=== PATIENT | female | born 1955 | race Caucasian/White ===

== ENCOUNTER → 2018-09-13 | Outpatient (CLI) | payer MEDICARE, BC ==
--- NOTE | 2018-09-13 15:18 | P.HPBAR ---
Bariatric H&P - History & Physicial H&P Date: 09/13/18 History & Physicial: Visit/CC: Patient initial contact: Initial weight: Initial weight in pounds: Height: Initial BMI: Last weight: Current weight: Current weight in pounds: Current BMI: [place] body weight (based on NIH guidelines): Excess body weight loss: The patient is a 63 year-old F who presents for Bariatric Assessment. HPI: She is looking into the gastric bypass. No prior surgeries to the stomach. She has severe GERD. She reports her mom getting heavier and her daughter. Highest weight is 296 pounds. She has done HCG diet and she lost much weight to 150 pounds with 80 pound weight loss. She still has her gallbladder. She reports liking her carbohydrates. She has troubles with acid reflux with carbohydrates. She does not feel full at all. She reports after her tubes tied. Her usual weight was 140 pounds in the past. She is a past smoker and social. She was 36 to 37 years old. She had a cystectomy in her 20s. ABDOMEN: No abdominal pain. ASSESSMENT: 1. Morbid obesity PLAN: 1. She is looking into the gastric bypass 2. She has completed medically supervised weight loss. 3. Recommend EGD Past Medical History Past Medical History: Osteoarthritis (OA), Sleep Apnea/CPAP/BIPAP Additional Past Medical History / Comment(s): chronic low back pain worsens with walking/movement in increments greater than 20 minutes, History of Any Multi-Drug Resistant Organisms: None Reported Past Surgical History: Tonsillectomy Additional Past Surgical History / Comment(s): oopherectomy (Left?) Past Anesthesia/Blood Transfusion Reactions: No Reported Reaction Past Psychological History: No Psychological Hx Reported Smoking Status: Current every day smoker Past Alcohol Use History: None Reported Additional Past Alcohol Use History / Comment(s): 1 pack per day x 6 years Past Drug Use History: None Reported - Past Family History Father Family Medical History: No Reported History Mother Family Medical History: No Reported History Bariatric Checklist Checklist: Plan: Checklist: EGD: 1. Hiatal hernia: 2. H. Pylori: HgbA1c: Vitamin D: Smoking: Current every day smoker Primary care physician referral: Psychiatry clearance: Cardiology clearance: Sleep study: Diet journal: VTE risk score: VTE risk level: Rehab needs at discharge:
[2018-09-13 16:13] VITALS: BP 149/84; PULSE 98; TEMP 97.5; BMI 43.3
[2018-09-13 17:28] LABS: HCT 46.8 % (34.0-46.0); MCHC 32.2 g/dL (31.0-37.0); MCV 90.1 fL (80.0-100.0); Mean Platelet Volume 7.5; Platelet Count 304 k/uL (150-450); RBC 5.19 m/uL (3.80-5.40); RDW 13.5 % (11.5-15.5); WBC 9.2 k/uL (3.8-10.6)
[2018-09-13 17:31] LABS: Partial Thromboplastin Time 23.2 sec (22.0-30.0); Prothrombin Time 10.5 sec (9.0-12.0)
[2018-09-14 00:31] LABS: Albumin 4.4 g/dL (3.80-4.90); Albumin/Globulin Ratio 1.76 (1.60-3.17); Anion Gap 13.6 mmol/L (4.00-12.00); Calcium 9.4 mg/dL (8.7-10.3); Carbon Dioxide 19.4 mmol/L (21.6-31.8); Globulin 2.5 g/dL (1.6-3.3); LDL Cholesterol,Calculated 115.4 mg/dL (0.0-131.0); Phosphorus 4.6 mg/dL (2.4-5.1); Potassium 4.6 mmol/L (3.5-5.5); Total Bilirubin 0.5 mg/dL (0.3-1.2); Total Protein 6.9 g/dL (6.2-8.2); VLDL Calculation 21.6 mg/dL (5.00-40.00)
[2018-09-14 00:48] LABS: Iron Saturation 26.3 (12.00-45.00)
[2018-09-14 00:56] LABS: Parathyroid Hormone Intact 63.9 pg/mL (14.0-72.0)
[2018-09-14 00:57] LABS: Folate, Serum 7.3 ng/mL; Vitamin D 25 Hydroxy 17.7 ng/mL (30.0-100.0)
[2018-09-14 02:36] LABS: Hemoglobin A1C 5.6 % (4.0-6.0)
[2018-09-14 13:58] LABS: Zinc, Serum 92 ug/dL (60-130)
[2018-09-15 06:23] LABS: Vitamin A 49 ug/dL (38-106)
[2018-09-15 15:21] LABS: Vit B1(Thiamine) 71 ug/L (38-122)
== END ==
LOC: BARWHC3 13:54
PROVIDERS: ATTEND Surgery Plastic and Reconstructive Surgery
DX: E66.01 Morbid (severe) obesity due to excess calories (principal); F17.200 Nicotine dependence, unspecified, uncomplicated; E21.1 Secondary hyperparathyroidism, not elsewhere classified; E89.1 Postprocedural hypoinsulinemia; D50.9 Iron deficiency anemia, unspecified; K90.9 Intestinal malabsorption, unspecified; E55.9 Vitamin D deficiency, unspecified; K74.1 Hepatic sclerosis; N19 Unspecified kidney failure; K50.90 Crohn's disease, unspecified, without complications; Z68.41 Body mass index [BMI] 40.0-44.9, adult
CPT/HCPCS: 84255; 84134; 84425; 80061; 80053; 82607; 82728; 82525; 82746; 83540; 83550; 83735; 84100; 84443; 84590; 84630; 85027; 85610; 85730; 82306; 83970; 83036; 93005; G0463; 99201

== ENCOUNTER → 2018-10-02 | Outpatient (CLI) | payer MEDICARE, BC ==
[2018-10-02 14:49] VITALS: BMI 44.9
== END | disposition home or self-care (01) ==
LOC: BARWHC3 08:38
PROVIDERS: ATTEND Surgery Plastic and Reconstructive Surgery
DX: E66.01 Morbid (severe) obesity due to excess calories (principal); Z68.41 Body mass index [BMI] 40.0-44.9, adult
CPT/HCPCS: 97804

== ENCOUNTER 2018-10-23 06:22 | Day surgery (SDC) | payer MEDICARE, BC ==
--- NOTE | 2018-10-22 18:20 | P.GSHP ---
History of Present Illness H&P Date: 10/23/18 CHIEF COMPLAINT: GERD HISTORY OF PRESENT ILLNESS: The patient is a 63-year-old female who presents reports gastroesophageal reflux disease. Upper endoscopy was offered for further evaluation and management. PAST MEDICAL HISTORY: Please see list. PAST SURGICAL HISTORY: Please see list. MEDICATIONS: Please see list. ALLERGIES: Please see list. SOCIAL HISTORY: No illicit drug use FAMILY HISTORY: No reports of Crohn disease or ulcerative colitis. REVIEW OF ORGAN SYSTEMS: CONSTITUTIONAL: No reports of fevers or chills. GI: Denies any blood in stools or constipation. PHYSICAL EXAM: VITAL SIGNS: Stable GENERAL: Well-developed and pleasant in no acute distress. HEENT: No scleral icterus. Extraocular movements grossly intact. Moist buccal mucosa. NECK: Supple without lymphadenopathy. CHEST: Unlabored respirations. Equal bilateral excursions. CARDIOVASCULAR: Regular rate and rhythm. Distal 2+ pulses. ABDOMEN: Soft, nondistended. MUSCULOSKELETAL: No clubbing, cyanosis, or edema. ASSESSMENT: 1. Gastroesophageal reflux disease PLAN: 1. Recommend proceeding with an upper endoscopy Past Medical History Past Medical History: Osteoarthritis (OA), Sleep Apnea/CPAP/BIPAP Additional Past Medical History / Comment(s): chronic low back pain worsens with walking/movement in increments greater than 20 minutes, History of Any Multi-Drug Resistant Organisms: None Reported Past Surgical History: Tonsillectomy Additional Past Surgical History / Comment(s): oopherectomy (Left?) Past Anesthesia/Blood Transfusion Reactions: No Reported Reaction Past Psychological History: No Psychological Hx Reported Smoking Status: Current every day smoker Past Alcohol Use History: None Reported Additional Past Alcohol Use History / Comment(s): 1 pack per day x 6 years Past Drug Use History: None Reported - Past Family History Father Family Medical History: No Reported History Mother Family Medical History: No Reported History Medications and Allergies Home Medications Medication Instructions Recorded Confirmed Type No Known Home Medications 10/02/18 10/02/18 History Allergies Allergy/AdvReac Type Severity Reaction Status Date / Time No Known Allergies Allergy Verified 10/02/18 11:16
[2018-10-23 06:51] VITALS: RESP 16; TEMP 97.7
[2018-10-23] MEDS ORDERED: LACTATED RINGERS 1,000 ML IV ONE (06:51)
[2018-10-23] MEDS ORDERED: PROPOFOL 10 MG/ML 20 ML VIAL IV ONE (07:04)
[2018-10-23] MEDS ORDERED: LIDOCAINE 1% INJ 10MG/ML (20 ML MDV) ONE (07:04)
[2018-10-23] MEDS ORDERED: MIDAZOLAM 2 MG/2 ML VIAL ONE (07:04)
[2018-10-23] MEDS ORDERED: KETAMINE 10 MG/ML 20 ML VIAL ONE (07:04)
--- NOTE | 2018-10-23 07:23 | P.PCN ---
Date of Procedure: 10/23/18 Description of Procedure: PREOPERATIVE DIAGNOSIS: Gastroesophageal reflux disease. Morbid obesity. POSTOPERATIVE DIAGNOSIS: Morbid obesity. Gastritis acute recent bleeding Duodenitis with superficial duodenal ulcer Erosive esophagitis Gastroesophageal reflux disease. OPERATION: Esophagogastroduodenoscopy with biopsies along antrum and duodenum SURGEON: Lynette Tate MD ANESTHESIA: MAC. INDICATIONS: The patient is a 63-year-old female who presents with a history of reflux disease. Benefits and risks of the procedure were described. Informed consent was obtained. DESCRIPTION: The patient was brought into the endoscopy suite and laid in the left lateral decubitus position. An Olympus gastroscope was passed along the posterior oropharynx down to the distal esophagus where the squamocolumnar junction was .investigated The stomach was entered and no bile reflux was found. Additional findings are listed below. Biopsies with cold forceps were obtained of the antrum. The first through third portion of the duodenum was examined and remarkable for duodenitis and superficial duodenal ulcer. Retroflexion of the scope confirmed Hill grade 3 lower esophageal valve. The squamocolumnar junction demonstrated LA grade B erosive esophagitis. The stomach was desufflated. The patient tolerated the procedure well. FINDINGS: No significant large hiatal hernial Hill grade 3 lower esophageal valve. LA grade B erosive esophagitis. Active duodenitis. Chronic gastritis with recent bleed RECOMMENDATIONS: Upper endoscopy as needed Start proton pump inhibitor Plan - Discharge Summary New Discharge Prescriptions: New Omeprazole 40 mg PO DAILY #30 capsule. Discharge Medication List Omeprazole 40 mg PO DAILY #30 capsule. 10/23/18 [Rx] Follow up Appointment(s)/Referral(s): Lynette Tate MD [STAFF PHYSICIAN] - 11/22/18 Patient Instructions/Handouts: Duodenitis (GEN), Gastritis (DC), Gastroesophageal Reflux Disease (DC), Diet for Stomach Ulcers and Gastritis (ED) Activity/Diet/Wound Care/Special Instructions: Your medication was sent to you local pharmacy Discharge Disposition: HOME SELF-CARE
[2018-10-23] MEDS ORDERED: LACTATED RINGERS 1,000 ML IV SCH (07:25)
[2018-10-23 08:00] VITALS: BP 139/73; PULSE 76
== END 2018-10-23 08:19 | disposition home or self-care (01) ==
LOC: ORWHC2ENDO 06:22
PROVIDERS: ATTEND Surgery Plastic and Reconstructive Surgery
DX: K21.0 Gastro-esophageal reflux disease with esophagitis (principal); E66.01 Morbid (severe) obesity due to excess calories; K22.10 Ulcer of esophagus without bleeding; K29.00 Acute gastritis without bleeding; K29.50 Unspecified chronic gastritis without bleeding; K29.80 Duodenitis without bleeding; F17.200 Nicotine dependence, unspecified, uncomplicated; Z68.41 Body mass index [BMI] 40.0-44.9, adult
CPT/HCPCS: 88305; 43239; J2250; J2001; J2704

== ENCOUNTER → 2018-11-29 | Outpatient (CLI) | payer MEDICARE, BC ==
[2018-11-29 16:33] VITALS: BP 142/63; PULSE 104; TEMP 98.4; BMI 44.0
--- NOTE | 2018-11-29 17:08 | P.PN ---
Subjective Progress Note Date: 11/29/18 DATE OF SERVICE: 11/29/2018 CHIEF COMPLAINT: Morbid obesity HISTORY OF PRESENT ILLNESS: Madonna Pickering is a 63-year-old female who comes with lifelong morbid obesity. She is looking into the gastric bypass. As a result of her obesity, she has developed obstructive sleep apnea, hypertension, and osteoarthritis of her knees and hips. She has completed an upper endoscopy. No reports of current abdominal pain. At height of 5 feet 6.5 inches, her ideal body weight is 154 pounds. She comes in 276 pounds from 272 pounds, 2 months ago. She has gained 4 pounds. Her highest weight was 296 pounds. Her body mass index highest was 47.2 to her current 44.0. She is 122 pounds overweight. PAST MEDICAL HISTORY: 1. Morbid obesity due to excess calories 2. Body mass index of 47.2, initial 3. Osteoarthritis of the knees. 4. Osteoarthritis of the lower back. 5. Hypertensive heart disease. 6. Gastroesophageal reflux disease 7. Obstructive sleep apnea 8. Osteoarthritis of the hips PAST SURGICAL HISTORY: 1. Tubal ligation 2. Ovarian cystectomy 3. EGD HOME MEDICATIONS: None. ALLERGIES: None. SOCIAL HISTORY: Past tobacco use. FAMILY HISTORY: No family history of ulcerative colitis disease or Crohn's disease. Family history of morbid obesity. No lupus in the family. No reports of stomach or esophageal cancer. REVIEW OF ORGAN SYSTEMS: CONSTITUTIONAL: At height of 5 feet 6.5 inches, her ideal body weight is 154 pounds. Her highest weight was 296 pounds. Her body mass index highest was 47.2. HEENT: Denies any active troubles with vision or hearing. No troubles with swallowing. ENDOCRINE: No diabetes. No hypothyroidism. CARDIOVASCULAR: No reports of palpitations or heart attacks or chest pain. RESPIRATORY: Has daytime somnolence. No asthma. GASTROINTESTINAL: Denies any bright red blood per rectum. No diarrhea. No constipation. MUSCULOSKELETAL: Has lower back pain and joint pain. Has osteoarthritis of the knees. NEURO: No headaches. No seizure disorders. PSYCH: No depression. No suicidal ideation. RHEUMATOLOGIC: No lupus. No rheumatoid arthritis. HEMATOLOGIC: Denies any abnormal bleeding or bruising. No personal history of DVTs. On anticoagulant. SKIN: No rash. No skin cancer. PHYSICAL EXAM: VITAL SIGNS: Height 5 foot 6.5 inches, weight 276 pounds. BMI 44.0 Vital Signs Temp 98.4 F 11/29/18 16:29 Pulse 104 H 11/29/18 16:29 Resp BP 142/63 11/29/18 16:29 Pulse Ox GENERAL: Well-developed in no acute distress. HEENT: No scleral icterus. Extraocular movements grossly intact. Hears conversational speech. No nasal drainage. NECK: Supple without lymphadenopathy. CHEST: Nonlabored respirations with equal bilateral excursions. CARDIOVASCULAR: Tachycardia. Distal 2+ pulses. ABDOMEN: Obese, soft, nontender, nondistended. MUSCULOSKELETAL: No clubbing, cyanosis. Gross strength 5/5 distal lower extremities. NEURO: No focal or lateralizing signs. Cranial nerves 2 through 12 grossly within normal limits. PSYCH: Appropriate affect. Alert and oriented to person, place and time. SKIN: Good skin turgor. Well perfused. Final Pathologic Diagnosis A. DUODENDUM, BIOPSY: Active duodenitis with villous blunting and focal ulceration showing adherent eschar most consistent with peptic disease. B. GASTRIC ANTRUM, BIOPSY: Chronic gastritis. Helicobacter organisms are not identified on routine H+E stained sections. EGD FINDINGS: No significant large hiatal hernial Hill grade 3 lower esophageal valve. LA grade B erosive esophagitis. Active duodenitis. Chronic gastritis with recent bleed EKG: Incomplete right bundle branch block LABS: Reviewed from outside facility ASSESSMENT: 1. Morbid obesity due to excess calories 2. Body mass index of 47.2, initial 3. Osteoarthritis of the knees. 4. Osteoarthritis of the lower back. 5. Hypertensive heart disease. 6. Gastroesophageal reflux disease 7. Obstructive sleep apnea 8. Osteoarthritis of the hips 9. Chronic gastritis with ulcers 10. Elevated LFTs PLAN: 1. Her EKG is abnormal and she is pending to see the powerhouse mechanic supervisor. Will need cardiac clearance. 2. Recommend US gallbaldder for gallstones and elevated LFTs 3. Consent reviewed for gastric bypass where she is high risk. 4. Bariatric options between a sleeve, band and a Tam-en-Y gastric bypass were reviewed in detail. The patient elected for a gastric bypass. Robotic assisted approach described. 5. The [place] [facility] Data was also reviewed with benefits and risks as described. 6. An 8 page second-generation bariatric consent form was reviewed in detail including potential of bleeding, infection, leaks, adequate weight loss, nutritional deficiencies which the patient demonstrated understanding of the risks. 7. All questions and concerns were addressed with the patient. 8. Surgery is deferred once medical, cardiac, psych clearances are obtained. 9. Will need labs performed at [facility] Objective - Vital Signs Vital signs: Vital Signs Temp 98.4 F 11/29/18 16:29 Pulse 104 H 11/29/18 16:29 Resp BP 142/63 11/29/18 16:29 Pulse Ox Intake & Output 11/28/18 11/29/18 11/29/18 18:59 06:59 18:59 Weight 125.645 kg
== END | disposition home or self-care (01) ==
LOC: BARWHC3 15:20
PROVIDERS: ATTEND Surgery Plastic and Reconstructive Surgery
DX: E66.01 Morbid (severe) obesity due to excess calories (principal); M17.0 Bilateral primary osteoarthritis of knee; M19.90 Unspecified osteoarthritis, unspecified site; I11.9 Hypertensive heart disease without heart failure; K21.9 Gastro-esophageal reflux disease without esophagitis; G47.33 Obstructive sleep apnea (adult) (pediatric); M16.0 Bilateral primary osteoarthritis of hip; K29.50 Unspecified chronic gastritis without bleeding; K25.7 Chronic gastric ulcer without hemorrhage or perforation; R79.89 Other specified abnormal findings of blood chemistry; Z68.41 Body mass index [BMI] 40.0-44.9, adult; Z87.891 Personal history of nicotine dependence; Z98.51 Tubal ligation status
CPT/HCPCS: 99211

== ENCOUNTER → 2018-12-19 | Outpatient (CLI) | payer MEDICARE, BC ==
--- NOTE | 2018-12-19 08:48 | US ---
EXAMINATION TYPE: US gallbladder DATE OF EXAM: 12/19/2018 COMPARISON: NONE CLINICAL HISTORY: R10.11 RUQ Pain. Patient having bariatric surgery and doctor wants to remove GB, jamie maria wanted US to confirm GB issue, states no symptoms EXAM MEASUREMENTS: Liver Length: 15.8 cm Gallbladder Wall: 0.2 cm CBD: 0.5 cm Right Kidney: 10.8 cm Pancreas: wnl Liver: intercostal only due to habitus and bowel gas. There is increased echogenicity of the hepatic parenchyma with diminished visualization of the portal triads most commonly relating to hepatic stea tosis and limiting evaluation for underlying hepatic masses. Gallbladder: 1.9 cm mobile stone seen toward neck of GB, no wall thickening Evidence for sonographic Johnson's sign: YES CBD: wnl Right Kidney: wnl IMPRESSION: 1. Cholelithiasis with 1.9 cm gallstone for the neck of the gallbladder and positive sonographic Murp hy sign. Although there is no current evidence of acute cholecystitis. Clinical examination serum lab oratory value correlation is recommended given the above findings. 2. Sonographic findings most commonly related to hepatic steatosis. Correlate with liver function arnulfo ts.
== END | disposition home or self-care (01) ==
LOC: RADUSWWP 07:11
PROVIDERS: ATTEND Surgery Plastic and Reconstructive Surgery
DX: K80.20 Calculus of gallbladder without cholecystitis without obstruction (principal)
CPT/HCPCS: 76705

== ENCOUNTER 2023-08-16 14:16 | Observation (INO) | payer MEDICARE, BC ==
[2023-08-16 15:23] LABS: Basophils # (A) 0.1 k/uL (0-0.2); Basophils % (A) 1 %; Eosinophils # (A) 0.2 k/uL (0-0.7); Eosinophils % (A) 1 %; HCT 46.4 % (34.0-46.0); HGB 15.5 gm/dL (11.4-16.0); Lymphocytes # (A) 3.1 k/uL (1.0-4.8); Lymphocytes % (A) 26 %; MCH 30.7 pg (25.0-35.0); MCHC 33.4 g/dL (31.0-37.0); MCV 91.8 fL (80.0-100.0); Mean Platelet Volume 8.1; Monocytes # (A) 0.6 k/uL (0-1.0); Monocytes % (A) 5 %; Neutrophils # (A) 7.7 k/uL (1.3-7.7); Neutrophils % (A) 65 %; Platelet Count 291 k/uL (150-450); RBC 5.05 m/uL (3.80-5.40); WBC 11.8 k/uL (3.8-10.6)
[2023-08-16 15:28] LABS: Partial Thromboplastin Time 23.1 sec (22.0-30.0); Prothrombin Time 10.7 sec (10.0-12.5)
[2023-08-16] MEDS: SODIUM CHLORIDE 0.9% 500 ML 500 ML IV STA (15:30)
[2023-08-16 15:32] LABS: ALT 30 U/L (4-34); African American GFR (CKD) >90 (>60 ml/min/1.73 sqM); Anion Gap 9 mmol/L; Blood Urea Nitrogen 15 mg/dL (7-17); Calcium 9.4 mg/dL (8.4-10.2); Carbon Dioxide 21 mmol/L (22-30); Chloride 106 mmol/L (98-107); Creatine Kinase 109 U/L (30-135); Glucose 101 mg/dL (74-99); Non-African American GFR(CKD) 88 (>60 ml/min/1.73 sqM); Sodium 136 mmol/L (137-145); Total Bilirubin 0.8 mg/dL (0.2-1.3)
[2023-08-16 15:33] LABS: AST 34 U/L (14-36); Albumin 4.4 g/dL (3.5-5.0); Alkaline Phosphatase 45 U/L (38-126); Potassium 4.3 mmol/L (3.5-5.1); Total Protein 7.9 g/dL (6.3-8.2)
--- NOTE | 2023-08-16 15:37 | ED ---
General Adult HPI - General Chief complaint: Neuro Symptoms/Deficit Stated complaint: AMS Time Seen by Provider: 08/16/23 14:33 Source: patient, RN notes reviewed Mode of arrival: ambulatory Limitations: no limitations - History of Present Illness Initial comments: 68-year-old female presents emergency department with sister for evaluation of confusion. Patient started having confusion at some time yesterday sister states she really noticed that last night when she talked on the phone. She just woke up and was tired. Patient reported he did not know that her son had cancer who has had cancer for over a year was not answering questions appropriat tasneem. Patient states that she felt very foggy just not right she states it is very hard to explain she denies any focal weakness denies chest pain shortness of breath she states MDM was some facial swelling and dental infections in which she went to [facility] today but sister told the dentist about her behavior and advised to come the emergency department. She denies any neck pain denies any back pain - Related Data Home Medications Medication Instructions Recorded Confirmed No Known Home Medications 08/16/23 08/16/23 Allergies Allergy/AdvReac Type Severity Reaction Status Date / Time No Known Allergies Allergy Verified 08/16/23 16:17 Review of Systems ROS Statement: Those systems with pertinent positive or pertinent negative responses have been documented in the HPI. ROS Other: All systems not noted in ROS Statement are negative. Past Medical History Past Medical History: Osteoarthritis (OA), Sleep Apnea/CPAP/BIPAP Additional Past Medical History / Comment(s): chronic low back pain worsens with walking/movement in increments greater than 20 minutes, History of Any Multi-Drug Resistant Organisms: None Reported Past Surgical History: Tonsillectomy Additional Past Surgical History / Comment(s): oopherectomy (Left?) Past Anesthesia/Blood Transfusion Reactions: No Reported Reaction Past Psychological History: No Psychological Hx Reported Past Alcohol Use History: None Reported Past Drug Use History: None Reported - Past Family History Father Family Medical History: No Reported History Mother Family Medical History: No Reported History General Exam Limitations: no limitations General appearance: alert, in no apparent distress Head exam: Present: atraumatic, normocephalic, normal inspection Eye exam: Present: normal appearance, PERRL, EOMI. Absent: scleral icterus, conjunctival injection, periorbital swelling ENT exam: Present: normal exam, normal oropharynx, mucous membranes moist Neck exam: Present: normal inspection, full ROM. Absent: tenderness, meningismus, lymphadenopathy Respiratory exam: Present: normal lung sounds bilaterally. Absent: respiratory distress, wheezes, rales, rhonchi, stridor Cardiovascular Exam: Present: regular rate, normal rhythm, normal heart sounds. Absent: systolic murmur, diastolic murmur, rubs, gallop, clicks GI/Abdominal exam: Present: soft, normal bowel sounds. Absent: distended, tenderness, guarding, rebound, rigid Neurological exam: Present: alert, oriented X3, CN II-XII intact, reflexes normal. Absent: motor sensory deficit Expanded Patient oriented to: Present: person, place, time Speech: Present: fluid speech Cranial nerves: EOM's Intact: Normal, Tongue Deviation: Normal, Nystagmus: Normal, Facial Sensation: Normal Cerebellar function: Finger to Nose: Normal, Heel to Keith: Normal Eye Response: (4) open spontaneously Motor Response: (6) obeys commands Verbal Response: (5) oriented Skin exam: Present: warm, dry, intact, normal color. Absent: rash Course Vital Signs 08/16/23 08/16/23 14:17 16:27 Temperature 97.4 F L Pulse Rate 99 90 Respiratory 16 18 Rate Blood Pressure 199/99 164/85 O2 Sat by Pulse 99 98 Oximetry EKG Findings - EKG Comments: EKG Findings:: EKG performed at 14: 49 sinus rhythm rate of 85 MT 163 QRS 98 QT/QTc 383/425 - EKG Results: EKG: interpreted by GUSTAVO Medical Decision Making - Medical Decision Making Was pt. sent in by a medical professional or institution (, PA, SEISMIC PROSPECTING SUPERVISOR, urgent care, hospital, or residential...) When possible be specific @ -No Did you speak to anyone other than the patient for history (EMS, parent, family, police, friend...)? What history was obtained from this source @ -[Family in the room for biding recent history and complaint Did you review nursing and triage notes (agree or disagree)? Why? @ -I reviewed and agree with nursing and triage notes Were old charts reviewed (outside hosp., previous admission, EMS record, old EKG, old radiological studies, urgent care reports/EKG's, residential records)? Report findings @ -No old charts were reviewed Differential Diagnosis (chest pain, altered mental status, abdominal pain women, abdominal pain men, vaginal bleeding, weakness, fever, dyspnea, syncope, headache, dizziness, GI bleed, back pain, seizure, CVA, palpatations, mental health, musculoskeletal)? @ -Differential CVA Ischemic stroke, hemorrhagic stroke, brain tumor, atypical migraine, Wernicke's encephalopathy, seizure, multiple sclerosis, meningitis, encephalitis, hy poglycemia, Guillain-Grimaldo, electrolytes disturbance, myasthenia gravis.... This is not meant to be an all-inclusive list EKG interpreted by me (3pts min.). @ -As above X-rays interpreted by me (1pt min.). @ -Chest x-ray shows no acute cardiopulmonary process. CT interpreted by me (1pt min.). @ -CT brain showing no acute intracranial hemorrhage, mass effect or acute abnormality CT facial bones shows no acute process U/S interpreted by me (1pt. min.). @ -None done What testing was considered but not performed or refused? (CT, X-rays, U/S, labs)? Why? @ -None What meds were considered but not given or refused? Why? @ -None Did you discuss the management of the patient with other professionals (professionals i.e. , PA, SEISMIC PROSPECTING SUPERVISOR, lab, RT, psych nurse, social work supervisor, relay worker, teacher, business services officer, comp field case manager)? Give summary @ -Position for admission secondary to possible TIA versus transient amnesia family is concerned that patient still has current symptoms. Patient had neurology evaluation. Was smoking cessation discussed for >3mins.? @ -No Was critical care preformed (if so, how long)? @ -No Were there social determinants of health that impacted care today? How? (Homelessness, low income, unemployed, alcoholism, drug addiction, transportation, low edu. Level, literacy, decrease access to med. care, care home, rehab)? @ -No Was there de-escalation of care discussed even if they declined (Discuss DNR or withdrawal of care, Hospice)? DNR status @ -No What co-morbidities impacted this encounter? (DM, HTN, Smoking, COPD, CAD, Cancer, CVA, ARF, Chemo, Hep., AIDS, mental health diagnosis, sleep apnea, morbid obesity)? @ -None Was patient admitted / discharged? Hospital course, mention meds given and route, prescriptions, significant lab abnormalities, going to OR and other pertinent info. @ -Admitted patient had significant change amnesia, possible TIA. Patient workup in the emergency department was negative. NIH is 0 currently. Patient will be admitted for neurology evaluation possible MRI and further evaluation. Undiagnosed new problem with uncertain prognosis? @ -No Drug Therapy requiring intensive monitoring for toxicity (Heparin, Nitro, Insulin, Cardizem)? @ -No Were any procedures done? @ -No Diagnosis/symptom? @ -TIA, transient amnesia Acute, or Chronic, or Acute on Chronic? @ -Acute Uncomplicated (without systemic symptoms) or Complicated (systemic symptoms)? @ -complicated Side effects of treatment? @ -No Exacerbation, Progression, or Severe Exacerbation? @ -No Poses a threat to life or bodily function? How? (Chest pain, [place], [place], pneumonia, PE, COPD, DKA, ARF, appy, cholecystitis, CVA, Diverticulitis, Homicidal, Suicidal, threat to staff... and all critical care pts) @ -Yes low likelihood TIA - Lab Data Result diagrams: 08/16/23 15:07 08/16/23 15:07 Lab Results 08/16/23 08/16/23 08/16/23 Range/Units 15:07 15:07 15:07 WBC 11.8 H (3.8-10.6) k/uL RBC 5.05 (3.80-5.40) m/uL Hgb 15.5 (11.4-16.0) gm/dL Hct 46.4 H (34.0-46.0) % MCV 91.8 (80.0-100.0) fL MCH 30.7 (25.0-35.0) pg MCHC 33.4 (31.0-37.0) g/dL RDW 13.0 (11.5-15.5) % Plt Count 291 (150-450) k/uL MPV 8.1 Neutrophils % 65 % Lymphocytes % 26 % Monocytes % 5 % Eosinophils % 1 % Basophils % 1 % Neutrophils # 7.7 (1.3-7.7) k/uL Lymphocytes # 3.1 (1.0-4.8) k/uL Monocytes # 0.6 (0-1.0) k/uL Eosinophils # 0.2 (0-0.7) k/uL Basophils # 0.1 (0-0.2) k/uL PT 10.7 (10.0-12.5) sec INR 1.0 (<1.2) APTT 23.1 (22.0-30.0) sec Sodium 136 L (137-145) mmol/L Potassium 4.3 (3.5-5.1) mmol/L Chloride 106 (98-107) mmol/L Carbon Dioxide 21 L (22-30) mmol/L Anion Gap 9 mmol/L BUN 15 (7-17) mg/dL Creatinine 0.70 (0.52-1.04) mg/dL Est GFR (CKD-EPI)AfAm >90 (>60 ml/min/1.73 sqM) Est GFR (CKD-EPI)NonAf 88 (>60 ml/min/1.73 sqM) Glucose 101 H (74-99) mg/dL Calcium 9.4 (8.4-10.2) mg/dL Total Bilirubin 0.8 (0.2-1.3) mg/dL AST 34 (14-36) U/L ALT 30 (4-34) U/L Alkaline Phosphatase 45 (38-126) U/L Ammonia (<30) umol/L Creatine Kinase 109 (30-135) U/L Troponin I (0.000-0.034) ng/mL Total Protein 7.9 (6.3-8.2) g/dL Albumin 4.4 (3.5-5.0) g/dL 08/16/23 08/16/23 Range/Units 15:07 15:07 WBC (3.8-10.6) k/uL RBC (3.80-5.40) m/uL Hgb (11.4-16.0) gm/dL Hct (34.0-46.0) % MCV (80.0-100.0) fL MCH (25.0-35.0) pg MCHC (31.0-37.0) g/dL RDW (11.5-15.5) % Plt Count (150-450) k/uL MPV Neutrophils % % Lymphocytes % % Monocytes % % Eosinophils % % Basophils % % Neutrophils # (1.3-7.7) k/uL Lymphocytes # (1.0-4.8) k/uL Monocytes # (0-1.0) k/uL Eosinophils # (0-0.7) k/uL Basophils # (0-0.2) k/uL PT (10.0-12.5) sec INR (<1.2) APTT (22.0-30.0) sec Sodium (137-145) mmol/L Potassium (3.5-5.1) mmol/L Chloride (98-107) mmol/L Carbon Dioxide (22-30) mmol/L Anion Gap mmol/L BUN (7-17) mg/dL Creatinine (0.52-1.04) mg/dL Est GFR (CKD-EPI)AfAm (>60 ml/min/1.73 sqM) Est GFR (CKD-EPI)NonAf (>60 ml/min/1.73 sqM) Glucose (74-99) mg/dL Calcium (8.4-10.2) mg/dL Total Bilirubin (0.2-1.3) mg/dL AST (14-36) U/L ALT (4-34) U/L Alkaline Phosphatase (38-126) U/L Ammonia 15 (<30) umol/L Creatine Kinase (30-135) U/L Troponin I <0.012 (0.000-0.034) ng/mL Total Protein (6.3-8.2) g/dL Albumin (3.5-5.0) g/dL Disposition Clinical Impression: Transient cerebral ischemia, Transient amnesia Disposition: ADMITTED IP TO THIS HOSP Condition: Fair Referrals: None,Stated [Primary Care Provider] - 1-2 days Time of Disposition: 16:37
--- NOTE | 2023-08-16 15:40 | CT ---
EXAMINATION TYPE: CT brain wo con DATE OF EXAM: 08/16/2023 COMPARISON: None INDICATION: confusion, memory loss DLP: Combined DLP of 696.9 mGycm, Automated exposure control for dose reduction was used. CONTRAST: None CT of the brain is performed utilizing 3 mm thick sections through the posterior fossa and 3 mm thick sections through the remaining calvarium. Study is performed within 24 hours of arrival to the hosp [facility]. No abnormal hyperdensity is present to suggest an acute intracranial hemorrhage. No mass lesion is evident. No acute infarcts are evident. Ventricles and sulci are appropriate for the patient age. Paranasal sinuses and mastoid air cells within the [id number] are clear. IMPRESSION: 1. No acute intracranial process. Follow-up MRI can be performed as clinically indicated
--- NOTE | 2023-08-16 15:41 | XR ---
EXAMINATION TYPE: XR chest 2V DATE OF EXAM: 08/16/2023 COMPARISON: None INDICATION: Acute mental status changes TECHNIQUE: Frontal and lateral views of the chest are obtained. FINDINGS: The heart size is normal. The pulmonary vasculature is normal. The lungs are clear. There is a small focal eventration of the right diaphragm. IMPRESSION: 1. No acute pulmonary process.
--- NOTE | 2023-08-16 15:50 | CT ---
EXAMINATION TYPE: CT facial bones wo con DATE OF EXAM: 08/16/2023 COMPARISON: None HISTORY: dental infection CT DLP: Combined DLP of 696.9 mGycm CONTRAST: 0 mL of Isovue 300 The paranasal sinuses are examined in the axial plane at 2 mm thick sections. Reconstructed images i n the coronal plane were obtained. There is dental amalgam scatter artifact. No abnormal findings to account for dental abscess. Temporo mandibular junctions are normal. Mandible appears intact as visualized. Maxilla appears intact as vis ualized The maxillary sinuses are clear. The ethmoid air cells are clear. The sphenoid sinuses are clear. The frontal sinuses are clear. IMPRESSION: 1. No suspicious abnormality account for dental abscess.
[2023-08-16] MEDS: ASPIRIN 325 MG TAB PO STA (16:53)
[2023-08-16 17:08] LABS: Appearance,Urine Clear (Clear); Bilirubin,Urine Negative (Negative); Blood,Urine Negative (Negative); Color,Urine Colorless; Glucose,Urine (UA) Negative (Negative); Ketones,Urine Negative (Negative); Leukocyte Esterase,Urine Negative (Negative); Nitrite,Urine Negative (Negative); PH, Urine 5.5 (5.0-8.0); Protein,Urine Negative (Negative); Specific Gravity,Urine 1.009 (1.001-1.035); Urobilinogen,Urine <2.0 mg/dL (<2.0)
[2023-08-16 17:43] LABS: Amphetamine Screen,Urine Not Detected (NotDetected); Barbiturate Screen,Urine Not Detected (NotDetected); Benzodiazepines Screen,Urine Not Detected (NotDetected); Cocaine Screen,Urine Not Detected (NotDetected); Methadone Screen, Urine Not Detected (NotDetected); Opiate Screen,Urine Not Detected (NotDetected); Oxycodone Screen, Urine Not Detected (NotDetected); Phencyclidine Screen,Urine Not Detected (NotDetected); Tricyclic Antidepressant,Urine Not Detected (NotDetected); Urn Cannabinoid Scrn Not Detected (NotDetected)
--- NOTE | 2023-08-16 18:44 | P.HPIM ---
History of Present Illness H&P Date: 08/16/23 History of Presenting Illness: Patient is a very pleasant 68-year-old female with a past medical history of hypertension and nicotine dependence smoking approximately 1.5 packs of cigarettes daily x 7 years. She presented to the emergency department with a chief complaint of confusion and disorientation. Patient reports this began on Tuesday. Patient reports she went to her son's house and spent half the day there but does not remember going to her son's house, letting his dogs out or spending the day there. She reports on Tuesday her sister called her and told her that she was at the hospital and she began frantically asking questions about why she was at the hospital and why she was visiting her son and reports that she knows that her son has had cancer for over a year but did not remember this during this conversation. Patient reports she does not even recall this conversation with her sister. She reports today her sister called her and explained this conversation to her and she became tearful and even more confused because she did not recall any of these events over the past couple days. She reports feeling like she is in a fog/daze and does not understand why she has so many gaps in her memory. She denies experiencing any fevers, chills, diaphoresis, headache, lightheadedness, dizziness, chest pain, palpitations, shortness of breath, difficulties with or changes in her speech, or experiencing any numbness/tingling/weakness/swelling in her extremities. Patient reports she recently had some facial swelling and dental infection and underwent course of antibiotics nearly a month ago and went to [facility] today for follow-up and after her sister told the dentist about her episodes of amnesia and strange behaviors over the past couple of days she was instructed to come to the emergency department for evaluation. Upon arrival to the ER patient underwent evaluation. Vital signs upon arrival show blood pressure 199/99, heart rate 99, respiratory rate 16, temp 97.4 F, and SpO2 of 99% on room air. EKG completed showing normal sinus rhythm at 85 bpm with no significant T wave or ST abnormalities showing no signs of acute ischemia upon personal review and interpretation. CT brain was negative for acute intracranial process. Blood glucose was 101. Chest x-ray completed negative for acute cardiopulmonary proc ess. CT face was negative showing no abnormal findings or suspicious abnormality to account for dental abscess and sinuses are reported to be clear. Labs completed and reviewed. CBC showing mild leukocytosis with WBC count of 11.8 otherwise normal findings. Coagulation profile normal findings. BMP revealing mild hypocarbia with bicarb of 21 otherwise normal findings. Liver profile unremarkable. Urinalysis negative for infection. Urine drug screen negative. Patient remains unable to recall the events over the last 2 days. She denies any recent accidents or head injuries and currently remains free from any other complaints at this time. Review of systems: Pertinent positives and negatives as discussed in HPI, a complete review of systems was performed and all other systems are negative. Physical exam: Vital signs reviewed and stable. General: Nontoxic, no distress and appears stated age. Derm: Skin warm and dry, normal coloration for ethnicity. Head: Atraumatic, normocephalic and symmetric. Eyes: EOMs intact, no lid lag, and anicteric sclera Mouth: no lip lesions, mucus membranes moist Cardiovascular: regular rate and rhythm with normal S1S2, no murmur, positive posterior tibial pulses bilaterally, and cap refill < 2 seconds. Lungs: Respirations even, regular, and unlabored on room air. Lungs CTA bilaterally, no rhonchi, no rales, no wheezing, and no accessory muscle usage. Abdominal: soft, nontender to palpation, no guarding, no appreciable organome vineet Ext: ROM intact. No gross muscle atrophy, no edema, no contractures Neuro: Speech clear, face symmetrical and CN II-XII grossly intact with no noted focal neuro deficits GCS 15.. Psych: Alert and oriented to person, place, time, and situation. Appropriate and pleasant affect. Assessment and Plan of Care: Amnesia, rule out TIA versus CVA vs transient global amnesia Hypertension Nicotine dependence -Consult neurology, appreciate recommendations -Telemetry monitoring -Order placed for Echocardiogram -Carotid Dopplers to be completed -TSH, Lipid profile, and Hgb A1c -NIH stroke scale with neuro checks every 4 hours and as needed -Daily aspirin 81 mg daily and atorvastatin 40 mg nightly. -Allow for permissive hypertension -Order placed for D-dimer -Consult placed to Speech and language pathologist for evaluation -Order placed for nicotine patch 21 mg daily, recommend smoking cessation. -Fall precautions and elopement precautions in place. Data and imaging reviewed: As stated above in HPI The patient is admitted with an anticipated less than 2 midnight stay for evaluation of TIA CODE STATUS: Full code DVT prophylaxis: Lovenox Anticipated discharge date: Clinical course to determine, likely within the next 24 to [address]: Home Patient was seen independently by Nurse Practitioner. This document was prepared using [employer] dictation software. Please allow for errors in microwave oven assembler while rare they do occur. Beto Quiroz NP rendered care for this patient independently, reviewed the findings and plan as documented in the note above. I did not physically speak with or examine the patient on this date. Past Medical History Past Medical History: Osteoarthritis (OA), Sleep Apnea/CPAP/BIPAP Additional Past Medical History / Comment(s): chronic low back pain worsens with walking/movement in increments greater than 20 minutes, History of Any Multi-Drug Resistant Organisms: None Reported Past Surgical History: Tonsillectomy Additional Past Surgical History / Comment(s): oopherectomy (Left?) Past Anesthesia/Blood Transfusion Reactions: No Reported Reaction Past Psychological History: No Psychological Hx Reported Past Alcohol Use History: None Reported Past Drug Use History: None Reported - Past Family History Father Family Medical History: No Reported History Mother Family Medical History: No Reported History Medications and Allergies Home Medications Medication Instructions Recorded Confirmed Type No Known Home Medications 08/16/23 08/16/23 History Allergies Allergy/AdvReac Type Severity Reaction Status Date / Time No Known Allergies Allergy Verified 08/16/23 16:17 Physical Exam Osteopathic Statement: *. No significant issues noted on an osteopathic structural exam other than those noted in the History and Physical/Consult. Vitals: Vital Signs Temp Pulse Resp BP Pulse Ox 08/16/23 16:27 90 18 164/85 98 08/16/23 14:17 97.4 F L 99 16 199/99 99 Intake and Output 08/16/23 08/16/23 08/16/23 06:59 14:59 22:59 Other: Weight 117.934 kg Results CBC & Chem 7: 08/16/23 15:07 08/16/23 15:07 Labs: Abnormal Lab Results - Last 24 Hours (Table) 08/16/23 08/16/23 Range/Units 15:07 15:07 WBC 11.8 H (3.8-10.6) k/uL Hct 46.4 H (34.0-46.0) % Sodium 136 L (137-145) mmol/L Carbon Dioxide 21 L (22-30) mmol/L Glucose 101 H (74-99) mg/dL
[2023-08-16] MEDS: ATORVASTATIN 40 MG TAB PO SCH (21:48)
--- NOTE | 2023-08-17 | US ---
EXAMINATION TYPE: US carotid duplex BILAT DATE OF EXAM: 08/16/2023 COMPARISON: NONE CLINICAL INDICATION: Female, 68 years old with history of TIA; TIA TECHNIQUE: Carotid duplex ultrasound examination. Indirect Doppler criteria was utilized. FINDINGS: EXAM MEASUREMENTS: RIGHT: Peak Systolic Velocity (PSV) cm/sec ----- Right CCA: 97.3 ----- Right ICA: 98.5 ----- Right ECA: 86.2 ICA/CCA ratio: 1.0 RIGHT: End Diastole cm/sec ----- Right CCA: 25.6 ----- Right ICA: 30.3 ----- Right ECA: 11.1 LEFT: Peak Systolic Velocity (PSV) cm/sec ----- Left CCA: 97.8 ----- Left ICA: 116.0 ----- Left ECA: 100.4 ICA/CCA ratio: 1.2 LEFT: End Diastole cm/sec ----- Left CCA: 22.8 ----- Left ICA: 38.3 ----- Left ECA: 15.0 VERTEBRALS (direction of flow): Right Vertebral: Antegrade Left Vertebral: Antegrade Rhythm: Normal STATION OPERATOR NOTES: Right CCA appears tortuous. No plaque seen IMPRESSION: 1. No sonographic evidence of significant atherosclerotic plaque, or significant stenosis in the cer vical carotid arteries. 2. Antegrade flow in the vertebral arteries. Criteria for Assigning % of Stenosis / Diameter reduction (Estimation based on the indirect measurements of the internal carotid artery velocities (ICA PSV). 1. Normal (no stenosis)=ICA PSV < 125 cm/s: ratio < 2.0: ICA EDV<40 cm/s. 2. Less than 50% stenosis=ICA PSV < 125 cm/s: ratio < 2.0: ICA EDV<40 cm/s. 3. 50 to 69% stenosis=ICA PSV of 125 to 230 cm/s: ration 2.0 ? 4.0: ICA EDV 40-100 cm/s. 4. Greater than 70% stenosis to near occlusion= ICA PSV > 230 cm/s: ratio > 4.0: ICA EDV > 100 cm/s. 5. Near occlusion= ICA PSV velocities may be low or undetectable: variable ratio and ICA EDV. 6. Total occlusion=unable to detect flow.
[2023-08-17 06:56] LABS: African American GFR (CKD) >90 (>60 ml/min/1.73 sqM); Anion Gap 8 mmol/L; Blood Urea Nitrogen 15 mg/dL (7-17); Calcium 8.7 mg/dL (8.4-10.2); Carbon Dioxide 23 mmol/L (22-30); Chloride 108 mmol/L (98-107); Glucose 92 mg/dL (74-99); Magnesium 2.2 mg/dL (1.6-2.3); Non-African American GFR(CKD) 86 (>60 ml/min/1.73 sqM); Potassium 4.1 mmol/L (3.5-5.1); Sodium 139 mmol/L (137-145)
[2023-08-17 08:38] LABS: HCT 46.3 % (37.2-46.3); HGB 14.6 g/dL (12.0-15.0); MCHC 31.5 g/dL (32.0-37.0); MCV 95.1 FL (80.0-97.0); Mean Platelet Volume 10.8 FL (9.5-12.2); NRBC Per 100 WBC 0 X 10*3/uL (0.00-0.01); Platelet Count 277 X 10*3/uL (140-440); RBC 4.87 X 10*6/uL (4.10-5.20); RDW 13.3 % (11.5-14.5); WBC 10.04 X 10*3/uL (4.50-10.00)
[2023-08-17] MEDS ORDERED: ASPIRIN 325 MG TAB PO SCH (09:00)
--- NOTE | 2023-08-17 10:52 | CA ---
Transthoracic Echo Report Name: Madonna Pickering Age: 68 Gender: F : 1955 Exam Date: 08/17/2023 09:12 Exam Location: [facility] Ht (in): 67 Wt (lb): 260 Ordering Physician: Beto Quiroz Attending/Referring Phys: Veneer Clipper Laine Michel RCS Procedure CPT: Indications: evaluate structure and function, TIA Cardiac Hx: Technical Quality: Fair Contrast 1: Total Dose (mL): Contrast 2: Total Dose (mL): MEASUREMENTS (Male / Female) Normal Values 2D ECHO LV Diastolic Diameter PLAX 4.6 cm 4.2 - 5.9 / 3.9 - 5.3 cm LV Systolic Diameter PLAX 3.2 cm IVS Diastolic Thickness 1.2 cm 0.6 - 1.0 / 0.6 - 0.9 cm LVPW Diastolic Thickness 0.9 cm 0.6 - 1.0 / 0.6 - 0.9 cm LV Relative Wall Thickness 0.5 RV Internal Dim ED PLAX 2.6 cm LVOT Diameter 2.2 cm LV Diastolic Volume MOD BP 124.1 cm??? 67 - 155 / 56 - 104 cm??? LV Systolic Volume MOD BP 50.6 cm??? 22 - 58 / 19 - 49 cm??? LV Ejection Fraction MOD BP 59.2 % >= 55 % LV Cardiac Index MOD BP 2552.7 cm???/min???m??? LV Diastolic Volume MOD 4C 127.2 cm??? LV Systolic Volume MOD 4C 48.1 cm??? LV Ejection Fraction MOD 4C 62.2 % LV Cardiac Index MOD 4C 2746.7 cm???/min???m??? LV Diastolic Length 4C 8.7 cm LV Systolic Length 4C 7.0 cm LV Diastolic Volume MOD 2C 119.8 cm??? LV Systolic Volume MOD 2C 48.1 cm??? LV Ejection Fraction MOD 2C 59.9 % LV Cardiac Index MOD 2C 2492.2 cm???/min???m??? LV Diastolic Length 2C 8.8 cm LV Systolic Length 2C 7.8 cm LA Volume 63.8 cm??? 18 - 58 / 22 - 52 cm??? LA Volume Index 26.4 cm???/m??? 16 - 28 cm???/m??? Ascending Aorta Diameter 3.4 cm DOPPLER AV Peak Velocity 159.9 cm/s AV Peak Gradient 10.2 mmHg AV Mean Velocity 112.3 cm/s AV Mean Gradient 5.6 mmHg AV Velocity Time Integral 34.5 cm LVOT Peak Velocity 115.8 cm/s LVOT Peak Gradient 5.4 mmHg LVOT Velocity Time Integral 23.3 cm LVOT Stroke Volume 90.2 cm??? LVOT Stroke Volume Index 39.9 ml/m??? LVOT Cardiac Index 3132.2 cm???/min???m??? AV Area Cont Eq vti 2.6 cm??? AV Area Cont Eq pk 2.8 cm??? Mitral E Point Velocity 56.3 cm/s Mitral A Point Velocity 92.2 cm/s Mitral E to A Ratio 0.6 MV Deceleration Time 195.3 ms MV E' Velocity 5.2 cm/s Mitral E to MV E' Ratio 10.8 PV Peak Velocity 92.2 cm/s PV Peak Gradient 3.4 mmHg FINDINGS Left Ventricle Left ventricular ejection fraction is estimated at 55-60 %. Mildly increased septal wall thickness. Moderately increased left ventricular diastolic volume. Mildly increased left ventricular systolic volume. No obvious regional wall motion abnormalities. Right Ventricle Normal right ventricular size and function. Unable to estimate right ventricular systolic function. Right Atrium Normal right atrial size. Left Atrium Moderately increased left atrial volume. Mitral Valve Structurally normal mitral valve. No evidence for mitral valve prolapse. No mitral stenosis. No mitral regurgitation. Aortic Valve Trileaflet aortic valve. No aortic valve stenosis or regurgitation. Tricuspid Valve Structurally normal tricuspid valve. No tricuspid prolapse. No tricuspid stenosis. No tricuspid regurgitation. Pulmonic Valve Structurally normal pulmonic valve. No pulmonic stenosis. No pulmonic regurgitation. Pericardium No pericardial effusion. Aorta Normal size aortic root and proximal ascending aorta. CONCLUSIONS Left ventricular ejection fraction 55-60% Moderately increased left ventricular wall thickness Moderately dilated left atrium No mitral regurgitation No tricuspid regurgitation Previewed by: Dr. Alejandro Rodríguez DO (Electronically Signed) Final Date: 17 August 2023 10:52
[2023-08-17 11:26] LABS: LDL Cholesterol,Calculated 113.3 mg/dL (0.0-131.0)
--- NOTE | 2023-08-17 11:26 | P.CNNES ---
History of Present Illness Consult date: 08/17/23 Requesting physician: Bird Christian Reason for Consult: TIA, transient amnesia History of Present Illness: Patient is a 68-year-old left-handed female, otherwise healthy, does not take any medications, came to the hospital yesterday at 2:16 PM for episode of amnesia. Patient states that on Tuesday, 1 day prior to arrival, she woke up in the morning and just felt tired and wanted to rest. She had to go to her son's house for lunch, she did not want to go, but did go there. She was not feeling sick otherwise. She arrived there at 3 PM. At around 4 or 5 PM, she started having loss of memory. She had conversation with her sister for half an hour at 8:30 PM and for couple minutes at 9 PM (as per her cell phone records), and patient does not remember having any of those conversations. During one of the conversation, patient's sister discussed with her about patient's sons cancer, and at that time patient did not remember that her son is suffering from metastatic cancer for almost a year. She was completely flipped to hear about her son's cancer at that time. Her sister became concerned, and wanted her to go to the hospital. Patient had a cracked tooth and it was hurting, therefore she wanted to see the dentist first. She saw the dentist yesterday morning who told her to go to the ER. Patient did not have any slurred speech, facial droop, visual problems, any focal numbness tingling or weakness. Vital signs arrival blood pressure 199/99, which improved to 164/85. Pulse rate 99 temperature 97.4. Blood test shows WBC 11.8, normal hemoglobin and platelets. PT PTT normal. Sodium 136, normal hepatic, renal functions, troponin, CK and ammonia. TSH is normal. UA negative. Urine drug screen negative. CT head revealed no acute intracranial process. I personally reviewed CT head, agree with the findings. Visualized paranasal sinuses are clear. Chest x-ray, EKG are normal. CT of the facial bones shows no suspicious abnormality to account for dental abscess. Patient denies history of hypertension or diabetes. The last time she saw her primary physician was about 2 or 3 years ago and her blood pressure was "fine". Patient denies any alcohol use or marijuana. She started smoking about 8 years ago. It has build up to smoking 1 to 1-1/2 pack/day now. Patient denies any history of seizures, any history of strokes or TIA. Patient's amnesia lasted between 4 to 5 PM through the night Tuesday, and she remembers everything that happened yesterday and today. At present at present patient has a mild headache on the top. Review of Systems Constitutional: Denies chills, Denies fever Eyes: denies blurred vision, denies diplopia, denies pain, denies loss of vision Ears: bilateral: ear discharge, deny: decreased hearing, earache, tinnitus Ears, nose, mouth and throat: Reports headache (Now and then, does have MINOR on top, thinking probably from not drinking coffee), Denies sore throat, Denies vertigo Cardiovascular: Denies chest pain, Denies lightheadedness, Denies shortness of breath Respiratory: Reports cough (Some times in am), Denies excessive sputum Gastrointestinal: Denies abdominal pain, Denies diarrhea, Denies nausea, Denies vomiting Genitourinary: Reports stress incontinence, Reports urgency, Reports urinary frequency, Denies dysuria, Denies hematuria, Denies urge incontinence Musculoskeletal: Reports low back pain, Denies myalgias, Denies neck pain Integumentary: Denies pruritus, Denies rash Neurological: Reports as per HPI Psychiatric: Denies anxiety, Denies depression Hematologic/Lymphatic: Denies easy bleeding, Denies easy bruising Past Medical History Past Medical History: Osteoarthritis (OA), Sleep Apnea/CPAP/BIPAP Additional Past Medical History / Comment(s): chronic low back pain worsens with walking/movement in increments greater than 20 minutes, History of Any Multi-Drug Resistant Organisms: None Reported Past Surgical History: Tonsillectomy Additional Past Surgical History / Comment(s): oopherectomy (Left?) Past Anesthesia/Blood Transfusion Reactions: No Reported Reaction Past Psychological History: No Psychological Hx Reported Smoking Status: Current every day smoker Past Alcohol Use History: None Reported Past Drug Use History: None Reported - Past Family History Father Family Medical History: No Reported History Mother Family Medical History: No Reported History Medications and Allergies Home Medications Medication Instructions Recorded Confirmed Type No Known Home Medications 08/16/23 08/16/23 History Allergies Allergy/AdvReac Type Severity Reaction Status Date / Time No Known Allergies Allergy Verified 08/16/23 16:17 Physical Examination - Vital Signs Vital Signs: Vital Signs Temp Pulse Pulse Resp BP BP Pulse Ox 08/17/23 07:00 97.6 F 74 17 162/72 95 08/17/23 03:52 97.9 F 73 16 164/73 96 08/16/23 22:52 98.2 F 71 19 162/85 97 08/16/23 21:50 75 16 174/100 94 L 08/16/23 18:37 82 18 177/91 96 08/16/23 16:27 90 18 164/85 98 08/16/23 14:17 97.4 F L 99 16 199/99 99 Intake and Output 08/16/23 08/17/23 08/17/23 22:59 06:59 14:59 Other: # Voids 1 Weight 117.934 kg Patient is an elderly female, very pleasant, in no acute distress. Patient is alert awake oriented to time place and person. Speech and language functions are normal. Patient can name and repeat very well. No aphasia or dysarthria. Attention, concentration and fund of knowledge is adequate. On cranial nerve examination, pupils are equal, round and reacting to light, visual slaughter are full on confrontation, with no neglect on double simultaneous stimulation. Extraocular muscles are intact with no nystagmus. Face is symmetric, tongue protrudes to the midline. Palatal elevation and sensation normal, hearing and shoulder shrug normal, facial sensation normal. On muscle strength testing, there is no pronator drift and the strength is normal in arms and legs distally and proximally. Deep tendon reflexes are symmetric, but hypoactive and plantars are downgoing. Sensory to touch is equal with no neglect on double simultaneous stimulation. Cerebellar function showed no ataxia for [id number] testing, although patient was slightly tremulous on the left side. No dysdiadochokinesia. No ataxia for [id number] testing on either side. Tone and bulk of muscles normal. Gait deferred.. On general examination, there is no carotid bruit or murmur, S1-S2 audible. Chest is clear on consultation. Abdomen is soft nontender. No organomegaly, bowel sounds present. Peripheral pulses are present. No peripheral edema. Results - Laboratory Findings CBC and BMP: 08/17/23 05:46 08/17/23 05:45 Abnormal Lab Findings: Abnormal Labs 08/16/23 08/16/23 08/17/23 15:07 15:07 05:45 WBC 11.8 H Hct 46.4 H MCHC Sodium 136 L Chloride 108 H Carbon Dioxide 21 L Glucose 101 H 08/17/23 05:46 WBC 10.04 H Hct MCHC 31.5 L Sodium Chloride Carbon Dioxide Glucose Assessment and Plan Assessment: * Transient global amnesia. Symptoms lasted for several hours. * New onset hypertension. * Tobacco use Plan: * Patient will undergo workup for TIA. * MRI brain * Carotid Doppler revealed no sonographic evidence of significant atherosclerotic plaque, or significant stenosis in the cervical carotid arteries. Antegrade flow in the vertebral arteries. * 2D echo showed moderately increased left ventricular wall thickness, with EF 55 to 60%. Moderately dilated left atrium. No MR. * Hemoglobin A1c 5.9, normal. * Fasting lipid panel * EEG, rule out epileptiform activity. * Agree with starting aspirin regimen. Patient received aspirin 324 mg in the ER and will be maintained on aspirin 81 mg daily. * Optimize control of blood pressure. Patient probably has hypertension. * Telemetry monitoring, rule out arrhythmia. * Recommend complete tobacco cessation. * Neurology will follow. Thank you for the consult.
--- NOTE | 2023-08-17 11:37 | P.PN ---
Subjective Progress Note Date: 08/17/23 Hospital Course: Patient is a very pleasant 68-year-old female with a past medical history of hypertension and nicotine dependence smoking approximately 1.5 packs of cigarettes daily x 7 years. She presented to the emergency department with a chief complaint of confusion and disorientation. Patient reports this began on Tuesday. Patient reports she went to her son's house and spent half the day there but does not remember going to her son's house, letting his dogs out or spending the day there. She reports on Tuesday her sister called her and told her that she was at the hospital and she began frantically asking questions about why she was at the hospital and why she was visiting her son and reports that she knows that her son has had cancer for over a year but did not remember this during this conversation. Patient reports she does not even recall this conversation with her sister. She reports today her sister called her and explained this conversation to her and she became tearful and even more confused because she did not recall any of these events over the past couple days. She reports feeling like she is in a fog/daze and does not understand why she has so many gaps in her memory. She denies experiencing any fevers, chills, diaphore sis, headache, lightheadedness, dizziness, chest pain, palpitations, shortness of breath, difficulties with or changes in her speech, or experiencing any numbness/tingling/weakness/swelling in her extremities. Patient reports she recently had some facial swelling and dental infection and underwent course of antibiotics nearly a month ago and went to [facility] today for follow-up and after her sister told the dentist about her episodes of amnesia and strange behaviors over the past couple of days she was instructed to come to the emergency department for evaluation. Upon arrival to the ER patient underwent evaluation. Vital signs upon arrival show blood pressure 199/99, heart rate 99, respiratory rate 16, temp 97.4 F, and SpO2 of 99% on room air. EKG completed showing normal sinus rhythm at 85 bpm with no significant T wave or ST abnormalities showing no signs of acute ischemia upon personal review and interpretation. CT brain was negative for acute intracranial process. Blood glucose was 101. Chest x-ray completed negative for acute cardiopulmonary process. CT face was negative showing no abnormal findings or suspicious abnormality to account for dental abscess and sinuses are reported to be clear. Labs completed and reviewed. CBC showing mild leukocytosis with WBC count of 11.8 otherwise normal findings. Coagulation profile normal findings. BMP revealing mild hypocarbia with bicarb of 21 otherwise normal findings. Liver profile unremarkable. Urinalysis negative for infection. Urine drug screen negative. Patient remains unable to recall the events over the last 2 days. She denies any recent accidents or head injuries and currently remains free from any other complaints at this time. Physical exam: Patient seen and evaluated at bedside. She reports feeling well denying any complaints but continues to have total loss of memory regarding events occurring from Tuesday afternoon/evening and throughout the day on Tuesday. She does report having a mild headache earlier, but currently denies. She denies having any changes in vision, hearing, changes in her difficulties with her speech, dysphagia, chest pain, palpitations, shortness of breath, or experiencing any numbness/tingling/weakness in her extremities. Vital signs reviewed and stable. General: Nontoxic, no distress and appears stated age. Derm: Skin warm and dry, normal coloration for ethnicity. Head: Atraumatic, normocephalic and symmetric. Eyes: EOMs intact, no lid lag, and anicteric sclera Mouth: no lip lesions, mucus membranes moist Cardiovascular: regular rate and rhythm with normal S1S2, no murmur, positive posterior tibial pulses bilaterally, and cap refill < 2 seconds. Lungs: Respirations even, regular, and unlabored on room air. Lungs CTA bilaterally, no rhonchi, no rales, no wheezing, and no accessory muscle usage. Abdominal: soft, nontender to palpation, no guarding, no appreciable organomegaly Ext: ROM intact. No gross muscle atrophy, no edema, no contractures Neuro: Speech clear, face symmetrical and CN II-XII grossly intact with no noted focal neuro deficits GCS 15.. Psych: Alert and oriented to person, place, time, and situation. Appropriate and pleasant affect. Assessment and Plan of Care: Transient global amnesia, rule out TIA versus CVA Hypertension Nicotine dependence -Neurology following, recommending EEG and MRI -CT brain negative for acute intracranial process. -CT face was negative for dental abscess or acute process. -Carotid Dopplers completed showing no sonographic evidence of significant atherosclerotic plaque or significant stenosis. -Echocardiogram completed showing preserved EF of 55 to 60% with moderately dilated left atrium otherwise no structural or valvular abnormalities reported. -Hemoglobin A1c 5.9%. Lipid profile unremarkable. TSH normal findings at 1.240. -Continue NIH stroke scale with neuro checks every 4 hours and as needed -Continue Daily aspirin 81 mg daily and atorvastatin 40 mg nightly. -Continue telemetry monitoring. -Consult placed to Speech and language pathologist for evaluation -Continue nicotine patch 21 mg daily, recommend smoking cessation. Data and imaging reviewed: Labs completed and reviewed. D-dimer was negative at 0.38. CBC showing mild leukocytosis with WBC count of 10.04 otherwise normal findings. BMP revealing mild hyperchloremia with chloride of 108 otherwise normal findings. Magnesium normal findings at 2.2. Hemoglobin A1c 5.9%. Lipid profile unremarkable. TSH normal findings at 1.240. Carotid Dopplers completed showing no sonographic evidence of significant ath erosclerotic plaque or significant stenosis. Echocardiogram completed showing preserved EF of 55 to 60% with moderately dilated left atrium otherwise no structural or valvular abnormalities reported. Vital signs reviewed. Blood pressure 162/72, heart rate 74, respiratory rate 17, temp 97.6 F, and SpO2 of 95% on room air. CODE STATUS: Full code DVT prophylaxis: Lovenox Anticipated discharge date: Clinical course to determine, likely within the next 24 to 48 hours pending completion of MRI and EEG. Anticipated discharge place: Home Patient was seen independently by Nurse Practitioner. This document was prepared using [employer] dictation software. Please allow for errors in cementer helper while rare they do occur. Beto Quiroz NP rendered care for this patient independently, reviewed the findings and plan as documented in the note above. I did not physically speak with or examine the patient on this date Objective - Vital Signs Vital signs: Vital Signs Temp 97.6 F 08/17/23 07:00 Pulse 74 08/17/23 07:00 Resp 17 08/17/23 07:00 BP 162/72 08/17/23 07:00 Pulse Ox 95 08/17/23 07:00 FiO2 Intake & Output 08/16/23 08/17/23 08/17/23 18:59 06:59 18:59 Weight 117.934 kg 117.934 kg Other: # Voids 1 - Labs CBC & Chem 7: 08/17/23 05:46 08/17/23 05:45 Labs: Abnormal Lab Results - Last 24 Hours (Table) 08/16/23 08/16/23 08/17/23 Range/Units 15:07 15:07 05:45 WBC 11.8 H (3.8-10.6) k/uL Hct 46.4 H (34.0-46.0) % Sodium 136 L (137-145) mmol/L Chloride 108 H (98-107) mmol/L Carbon Dioxide 21 L (22-30) mmol/L Glucose 101 H (74-99) mg/dL
[2023-08-17] MEDS: ASPIRIN 81 MG PO SCH (13:12)
[2023-08-17] MEDS: ENOXAPARIN 40 MG/0.4 ML SYRINGE SQ SCH (13:12)
[2023-08-17] MEDS: NICOTINE 21MG/24HR PATCH TRANSDERM SCH (13:13)
--- NOTE | 2023-08-17 17:50 | MR ---
EXAMINATION TYPE: MR brain wo con DATE OF EXAM: 08/17/2023 5:04 PM CLINICAL INDICATION:Female, 68 years old with history of TIA vs TGA; COMPARISON: 08/16/2023. TECHNIQUE: Multi planar, multi sequence imaging was performed through the brain including: T1, T2, In version recovery, Diffusion weighted imaging, and gradient echo imaging. No gadolinium was given. FINDINGS: The perez-white junctions, ventricular system, basal cisterns appear unremarkable. Midline structures show no abnormality. Diffusion-weighted imaging shows no evidence of restricted diffusion. The suscep tibility weighted images do not reveal any evidence for micro-hemorrhage. The bone marrow signal is within normal limits. Paranasal sinuses and mastoid air cells: No significant paranasal sinus disease. Visualized orbits: Orbital contents are intact. IMPRESSION: No evidence of intracranial mass or acute/subacute infarct.
--- NOTE | 2023-08-17 22:26 | EEG ---
ELECTROENCEPHALOGRAM REPORT PREAMBLE: This is a 68-year-old female with episode of transient amnesia. This study is performed to evaluate for any epileptiform activity. EEG FINDINGS: This is a 21-channel digital EEG recorded with video component, utilizing 10/20 international system with referential and bipolar montages. Background consists of well-developed, moderately well regulated, mixed frequencies of 9 hertz alpha, mixed with some fast frequency beta activity seen in bihemispheric region. Background is posterior dominant and reactive to eye opening and closing. Photic driving response was not seen. Drowsiness was seen with appearance of bilaterally symmetric theta frequency rhythm. Stage 2 sleep was attained with presence of some sleep spindles and vertex waves. Some temporal sharp transients were seen, but did not appear clearly epileptiform. No focal or generalized epileptiform activity was seen. EKG channel showed no obvious arrhythmia. IMPRESSION: This is a normal EEG during wakefulness, drowsiness, and stage 2 sleep. No definitive focal, lateralized, or epileptiform activity was seen. MMODL / IJN: [id number] /
[2023-08-17 22:35] VITALS: RESP 16
[2023-08-18 07:36] VITALS: BP 153/81; PULSE 78; TEMP 97.5
--- NOTE | 2023-08-18 12:36 | P.DS ---
Providers Date of admission: 08/16/23 16:23 Expected date of discharge: 08/18/23 Attending physician: Sera Cadena DO Consults: 08/16/23 16:38 Consult Physician Routine Consulting Provider: Mika Mcmillan Consult Reason/Comments: TIA, transient amnesia Do you want consulting provider notified?: Yes Primary care physician: Stated None Hospital Course: Discharge Diagnosis: Transient global amnesia Hypertension Nicotine dependence Hospital Course: Patient is a very pleasant 68-year-old female with a past medical history of hypertension and nicotine dependence smoking approximately 1.5 packs of cigarettes daily x 7 years. She presented to the emergency department with a chief complaint of confusion and disorientation. Patient reports this began on Tuesday. Patient reports she went to her son's house and spent half the day there but does not remember going to her son's house, letting his dogs out or spending the day there. She reports on Tuesday her sister called her and told her that she was at the hospital and she began frantically asking questions about why she was at the hospital and why she was visiting her son and reports that she knows that her son has had cancer for over a year but did not remember this during this conversation. Patient reports she does not even recall this conversation with her sister. She reports today her sister called her and explained this conversation to her and she became tearful and even more confused because she did not recall any of these events over the past couple days. She reports feeling like she is in a fog/daze and does not understand why she has so many gaps in her memory. She denies experiencing any fevers, chills, diaphoresis, headache, lightheadedness, dizziness, chest pain, palpitations, shortness of breath, difficulties with or changes in her speech, or experiencing any numbness/tingling/weakness/swelling in her extremities. Patient reports she recently had some facial swelling and dental infection and underwent course of antibiotics nearly a month ago and went to [facility] today for follow-up and after her sister told the dentist about her episodes of amnesia and strange behaviors over the past couple of days she was instructed to come to the emergency department for evaluation. Upon arrival to the ER patient underwent evaluation. Vital signs upon arrival show blood pressure 199/99, heart rate 99, respiratory rate 16, temp 97.4 F, and SpO2 of 99% on room air. EKG completed showing normal sinus rhythm at 85 bpm with no significant T wave or ST abnormalities showing no signs of acute ischemia upon personal review and interpretation. CT brain was negative for acute intracranial process. Blood glucose was 101. Chest x-ray completed negative for acute cardiopulmonary process. CT face was negative showing no abnormal findings or suspicious abnormality to account for dental abscess and sinuses are reported to be clear. Labs completed and reviewed. CBC showing mild leukocytosis with WBC count of 11.8 otherwise normal findings. Coagulation profile normal findings. BMP revealing mild hypocarbia with bicarb of 21 otherwise normal findings. Liver profile unremarkable. Urinalysis negative for infection. Urine drug screen negative. Patient was admitted under our services with consultation to neurology. Carotid Dopplers completed showing no sonographic evidence of significant atherosclerotic plaque or significant stenosis. Echocardiogram completed showing preserved EF of 55 to 60% with moderately dilated left atrium otherwise no structural or valvular abnormalities reported. Hemoglobin A1c 5.9%. Lipid profile unremarkable. TSH normal findings at 1.240. EEG completed and report stating normal EEG with no definitive focal, lateralized, or epileptiform activity noted. MRI brain completed and was negative showing no evidence of intracranial mass or acute/subacute infarct and no significant paranasal sinus disease. Patient was cleared from neurology perspective for discharge. Patient remains unable to recall the events over the last 2 days and continues to remain free from any other complaints at this time. Medically, patient stable for discharge at this time. She will be scheduled for follow-up with PCP and is discharged home on aspirin 81 mg daily. Recommend smoking cessation and patient instructed to monitor blood pressures twice daily at home and document findings and a daily log to bring with her to her next PCPs appointment as she may benef it from being started on antihypertensive medication regimen. Blood pressure at time of discharge 153/81 and heart rate 78. Physical exam: Vital signs reviewed and stable. General: Nontoxic, no distress and appears stated age. Derm: Skin warm and dry, normal coloration for ethnicity. Head: Atraumatic, normocephalic and symmetric. Eyes: EOMs intact, no lid lag, and anicteric sclera Mouth: no lip lesions, mucus membranes moist Cardiovascular: regular rate and rhythm with normal S1S2, no murmur, positive posterior tibial pulses bilaterally, and cap refill < 2 seconds. Lungs: Respirations even, regular, and unlabored on room air. Lungs CTA bilaterally, no rhonchi, no rales, no wheezing, and no accessory muscle usage. Abdominal: soft, nontender to palpation, no guarding, no appreciable organomegaly Ext: ROM intact. No gross muscle atrophy, no edema, no contractures Neuro: Speech clear, face symmetrical and CN II-XII grossly intact with no noted focal neuro deficits GCS 15.. Psych: Alert and oriented to person, place, time, and situation. Appropriate and pleasant affect. A total of 34 minutes of time were spent preparing this complex discharge summary. Pt was discharged on 08/18/2023 at 12:20 PM. Patient was seen independently by Nurse Practitioner. This document was prepared using [employer] dictation software. Please allow for e rrors in municipal maintenance worker while rare they do occur. I reviewed the documentation as provided by the LAWRENCE above, who is the original author of this note. I agree with the documented assessment and plan, with the following changes: none Patient Condition at Discharge: Stable Plan - Discharge Summary New Discharge Prescriptions: New Aspirin 81 mg PO DAILY 30 Days #30 tab Discharge Medication List Aspirin 81 mg PO DAILY 30 Days #30 tab 08/18/23 [Rx] Follow up Appointment(s)/Referral(s): Celso Bucio MD [REFERRING] - 1 Week Patient Instructions/Handouts: Transient Global Amnesia (GEN) Activity/Diet/Wound Care/Special Instructions: Activity: As tolerated. Take breaks as needed. Diet: Heart healthy and carb consistent diet. Avoid salts, or foods with hidden salts such as canned or boxed foods and frozen dinners. Extra salt makes your heart work harder and traps the fluid in your body for longer. Special Instructions: Take all of your medications as directed and remember to keep all of your doctor's appointments and follow-up as needed. Truly wishing you and your family the best of luck and sending many prayers your way! Recommend taking your blood pressure twice daily and documenting these in a daily log to bring with you to your scheduled appointment with Dr. Bucio. Thank you for allowing us to participate in your care, it was truly a pleasure having you for our patient!!! Discharge Disposition: HOME SELF-CARE
[2023-08-18] MEDS ORDERED: ATORVASTATIN 20 MG TAB PO SCH (21:00)
--- NOTE | 2023-08-19 10:55 | P.PN ---
Subjective Progress Note Date: 08/18/23 Patient was seen for a follow-up. Symptoms have resolved. No new concerns. Objective - Vital Signs Vital signs: Vital Signs Temp 97.5 F L 08/18/23 07:00 Pulse 78 08/18/23 07:00 Resp 16 08/18/23 07:00 BP 153/81 08/18/23 07:00 Pulse Ox 94 L 08/18/23 07:00 FiO2 Intake & Output 08/17/23 08/18/23 08/18/23 18:59 06:59 18:59 Intake Total 600 480 Balance 600 480 Intake: Oral 600 480 Other: # Voids 1 2 - Exam Examination nonfocal. - Labs CBC & Chem 7: 08/17/23 05:46 08/17/23 05:45 Labs: Microbiology - Last 24 Hours (Table) 08/16/23 19:26 Blood Culture - Preliminary Blood 08/16/23 19:16 Blood Culture - Preliminary Blood Assessment and Plan Assessment: * Transient amnesia. Symptoms lasted for several hours. * New onset hypertension. * * Tobacco use Plan: * Patient underwent workup for TIA. * MRI brain revealed no evidence of intracranial mass or acute/subacute infarct. I personally reviewed MRI agree with the findings. * Carotid Doppler revealed no sonographic evidence of significant atherosclerotic plaque, or significant stenosis in the cervical carotid arteries. Antegrade flow in the vertebral arteries. * 2D echo showed moderately increased left ventricular wall thickness, with EF 55 to 60%. Moderately dilated left atrium. No MR. * Hemoglobin A1c 5.9, normal. * Fasting lipid panel with cholesterol 180, LDL 113, HDL 41, triglycerides 124. We will change from Lipitor 40 mg down to 20 mg daily. * EEG was normal during wakefulness, drowsiness and stage II sleep. No focal, lateralized or epileptiform activity was seen. * Agree with starting aspirin regimen. Patient received aspirin 324 mg in the ER and will be maintained on aspirin 81 mg daily. * Optimize control of blood pressure. Patient probably has hypertension. * Telemetry monitoring, rule out arrhythmia. * Recommend complete tobacco cessation. * Neurologically clear for discharge on aspirin and statins.
== END 2023-08-18 14:27 | disposition home or self-care (01) ==
LOC: EC 14:16 → 6NMEDSUR 16:23
PROVIDERS: ADMIT Internal Medicine; ATTEND Internal Medicine
DX: G45.4 Transient global amnesia (principal); I10 Essential (primary) hypertension; G47.30 Sleep apnea, unspecified; G89.29 Other chronic pain; M54.50 Low back pain, unspecified; F17.210 Nicotine dependence, cigarettes, uncomplicated
CPT/HCPCS: 96372; 99285; 36415; 95816; 93005; 93306; 92523; 85379; 80061; 80053; 80048; 84443; 82140; 82550; 83735; 84484; 85025; 85027; 85610; 85730; 81003; 87040; 80306; 83036; 71046; 93880; 70486; 70450; 70551; G0378 ×3; J1650

== ENCOUNTER 2023-11-06 13:31 | Emergency (ER) | payer MEDICARE, BC ==
[2023-11-06 13:40] VITALS: PULSE 87; RESP 18; TEMP 97.8
--- NOTE | 2023-11-06 14:04 | ED ---
General Adult HPI - General Chief complaint: Recheck/Abnormal Lab/Rx Stated complaint: Confusion Time Seen by Provider: 11/06/23 13:37 Source: patient, family, RN notes reviewed Mode of arrival: ambulatory Limitations: no limitations - History of Present Illness Initial comments: Patient is a pleasant 68-year-old female present to the emergency department with episode of confusion. Patient sister called her around 11 or 1130 and patient was confused. Patient did not recall that her son had cancer, some recent family events, and what the date was. Patient was unclear of the month. Sister took blood pressure and was elevated at 200. Patient states now she is feeling better at this time. Patient has had increased stress regarding family events recently however states she did not feel stressed at that time. Patient does recall her sister calling and coming over and events regarding that time. - Related Data Previous Rx's Medication Instructions Recorded Aspirin 81 mg PO DAILY 30 Days #30 tab 08/18/23 Atorvastatin [Lipitor] 40 mg PO DAILY 30 Days #30 tablet 08/19/23 Allergies Allergy/AdvReac Type Severity Reaction Status Date / Time No Known Allergies Allergy Verified 11/06/23 13:40 Review of Systems ROS Statement: Those systems with pertinent positive or pertinent negative responses have been documented in the HPI. ROS Other: All systems not noted in ROS Statement are negative. Constitutional: Denies: fever Eyes: Denies: eye pain ENT: Denies: ear pain Respiratory: Denies: cough Cardiovascular: Denies: chest pain Endocrine: Denies: fatigue Gastrointestinal: Denies: abdominal pain Musculoskeletal: Denies: back pain Skin: Denies: rash Neurological: Reports: as per HPI, confusion. Denies: headache, weakness Past Medical History Past Medical History: Osteoarthritis (OA), Sleep Apnea/CPAP/BIPAP Additional Past Medical History / Comment(s): chronic low back pain worsens with walking/movement in increments greater than 20 minutes, History of Any Multi-Drug Resistant Organisms: None Reported Past Surgical History: Tonsillectomy Additional Past Surgical History / Comment(s): oopherectomy (Left?) Past Anesthesia/Blood Transfusion Reactions: No Reported Reaction Past Psychological History: No Psychological Hx Reported Smoking Status: Current every day smoker Past Alcohol Use History: None Reported Past Drug Use History: None Reported - Past Family History Father Family Medical History: No Reported History Mother Family Medical History: No Reported History General Exam Limitations: no limitations General appearance: alert, in no apparent distress Head exam: Present: normocephalic Eye exam: Present: normal appearance, PERRL, EOMI ENT exam: Present: normal oropharynx Neck exam: Present: normal inspection Respiratory exam: Present: normal lung sounds bilaterally Cardiovascular Exam: Present: regular rate, normal rhythm GI/Abdominal exam: Present: soft. Absent: tenderness Extremities exam: Present: normal inspection. Absent: pedal edema, calf tenderness Neurological exam: Present: alert Psychiatric exam: Present: normal affect, normal mood Skin exam: Present: normal color Course Vital Signs 11/06/23 11/06/23 13:34 13:55 Temperature 97.8 F Pulse Rate 87 Pulse Rate [ 87 Worship Director ] Respiratory 18 Rate Blood Pressure 165/82 O2 Sat by Pulse 96 Oximetry EKG Findings - EKG Results: EKG: interpreted by GUSTAVO (Right bundle branch block), sinus rhythm, normal axis, normal ST/T Medical Decision Making - Medical Decision Making Was pt. sent in by a medical professional or institution (, PA, CALL CENTER REPRESENTATIVE, urgent ca re, hospital, or usp...) When possible be specific @ -No Did you speak to anyone other than the patient for history (EMS, parent, family, police, friend...)? What history was obtained from this source @ -Sister is present and helps provide history including symptoms and blood pressure Did you review nursing and triage notes (agree or disagree)? Why? @ -I reviewed and agree with nursing and triage notes Were old charts reviewed (outside hosp., previous admission, EMS record, old EK G, old radiological studies, urgent care reports/EKG's, usp records)? Report findings @ -Previous admission and discharge summary and MRI and neurology reports reviewed Differential Diagnosis (chest pain, altered mental status, abdominal pain women, abdominal pain men, vaginal bleeding, weakness, fever, dyspnea, syncope, headache, dizziness, GI bleed, back pain, seizure, CVA, palpatations, mental health, musculoskeletal)? @ -MDM differential altered mental differential Altered Mental Status: Hypoglycemia, DKA, hypercapnia, ETOH, overdose, CO poisoning, trauma, myxedema coma, HTN encephalopathy, infection, encephalitis, psychosis, intercranial hemorrhage, hepatic encephalopathy, meningitis, CVA, this is not meant to be an all-inclusive list EKG interpreted by me (3pts min.). @ -As above X-rays interpreted by me (1pt min.). @ -Chest x-ray shows no acute process CT interpreted by me (1pt min.). @ -CT scan of the brain does not reveal acute abnormality U/S interpreted by me (1pt. min.). @ -None done What testing was considered but not performed or refused? (CT, X-rays, U/S, labs)? Why? @ -None What meds were considered but not given or refused? Why? @ -None Did you discuss the management of the patient with other professionals (professionals i.e. Dr., PA, CALL CENTER REPRESENTATIVE, lab, RT, psych nurse, director social, energy administrator, teacher, correctional officer chief, case management assistant)? Give summary @ -Case discussed with Dr. Gordon who recommends discussing the case with neurology. Case was discussed with Dr. Arenas who states that patient is feeling well at this time having extensive recent workup patient can be discharged for follow-up with neurology and psychiatry Was smoking cessation discussed for >3mins.? @ -No Was critical care preformed (if so, how long)? @ -No Were there social determinants of health that impacted care today? How? (Homelessness, low income, unemployed, alcoholism, drug addiction, transportation, low edu. Level, literacy, decrease access to med. care, fci, rehab)? @ -No Was there de-escalation of care discussed even if they declined (Discuss DNR or withdrawal of care, Hospice)? DNR status @ -No What co-morbidities impacted this encounter? (DM, HTN, Smoking, COPD, CAD, Cancer, CVA, ARF, Chemo, Hep., AIDS, mental health diagnosis, sleep apnea, morbid obesity)? @ -None Was patient admitted / discharged? Hospital course, mention meds given and route, prescriptions, significant lab abnormalities, going to OR and other pertinent info. @ -Patient presents with transient amnesia. Patient's blood pressure is good here. Patient remains symptom-free even on reevaluation at this time. No neurological findings on exam. Patient will be discharged with neurology and psychiatry and primary care physician follow-up. Patient and family updated on results and plan patient and family are both comfortable with discharge home. Undiagnosed new problem with uncertain prognosis? @ -No Drug Therapy requiring intensive monitoring for toxicity (Heparin, Nitro, I nsulin, Cardizem)? @ -No Were any procedures done? @ -No Diagnosis/symptom? @ -Transient amnesia Acute, or Chronic, or Acute on Chronic? @ -Acute Uncomplicated (without systemic symptoms) or Complicated (systemic symptoms)? @ -Default Side effects of treatment? @ -No Exacerbation, Progression, or Severe Exacerbation? @ -No Poses a threat to life or bodily function? How? (Chest pain, [place], [place], pneumonia, PE, COPD, DKA, ARF, appy, cholecystitis, CVA, Diverticulitis, Homicidal, Suicidal, threat to staff... and all critical care pts) @ -No - Lab Data Result diagrams: 11/06/23 14:21 11/06/23 14:21 Lab Results 11/06/23 11/06/23 11/06/23 Range/Units 14:21 14:21 14:21 WBC 9.6 (3.8-10.6) k/uL RBC 5.37 (3.80-5.40) m/uL Hgb 15.8 (11.4-16.0) gm/dL Hct 50.3 H (34.0-46.0) % MCV 93.7 (80.0-100.0) fL MCH 29.4 (25.0-35.0) pg MCHC 31.3 (31.0-37.0) g/dL RDW 12.8 (11.5-15.5) % Plt Count 305 (150-450) k/uL MPV 8.9 Neutrophils % 74 % Lymphocytes % 20 % Monocytes % 4 % Eosinophils % 1 % Basophils % 0 % Neutrophils # 7.1 (1.3-7.7) k/uL Lymphocytes # 1.9 (1.0-4.8) k/uL Monocytes # 0.4 (0-1.0) k/uL Eosinophils # 0.1 (0-0.7) k/uL Basophils # 0.0 (0-0.2) k/uL PT 10.9 (10.0-12.5) sec INR 1.0 (<1.2) APTT 24.0 (22.0-30.0) sec Sodium 138 (137-145) mmol/L Potassium 4.4 (3.5-5.1) mmol/L Chloride 111 H (98-107) mmol/L Carbon Dioxide 17 L (22-30) mmol/L Anion Gap 10 mmol/L BUN 13 (7-17) mg/dL Creatinine 0.65 (0.52-1.04) mg/dL Est GFR (CKD-EPI)AfAm >90 (>60 ml/min/1.73 sqM) Est GFR (CKD-EPI)NonAf >90 (>60 ml/min/1.73 sqM) Glucose 111 H (74-99) mg/dL Calcium 9.2 (8.4-10.2) mg/dL Total Bilirubin 0.7 (0.2-1.3) mg/dL AST 30 (14-36) U/L ALT 30 (4-34) U/L Alkaline Phosphatase 52 (38-126) U/L Creatine Kinase 145 H (30-135) U/L Total Protein 7.5 (6.3-8.2) g/dL Albumin 4.5 (3.5-5.0) g/dL Disposition Clinical Impression: Transient amnesia Disposition: HOME SELF-CARE Condition: Stable Instructions (If sedation given, give patient instructions): Transient Global Amnesia (ED) Additional Instructions: Please do follow-up with your primary care physician beginning of the week. Please also follow-up with neurology and psychiatry. Return for change in mental status, memory loss, confusion, weakness, headaches, worsening or changing symptoms, uncontrolled blood pressure, or other concerns. Is patient prescribed a controlled substance at d/c from ED?: No Referrals: Maco Bhat MD [STAFF PHYSICIAN] - 1-2 days Jadon Akins MD [Medical Doctor] - 1-2 days Reynaldo Aiken DO [Doctor of Osteopathic Medicine] - 1-2 days Time of Disposition: 15:32
[2023-11-06 14:32] LABS: Basophils % (A) 0 %; Eosinophils # (A) 0.1 k/uL (0-0.7); Eosinophils % (A) 1 %; HCT 50.3 % (34.0-46.0); HGB 15.8 gm/dL (11.4-16.0); Lymphocytes # (A) 1.9 k/uL (1.0-4.8); Lymphocytes % (A) 20 %; MCH 29.4 pg (25.0-35.0); MCHC 31.3 g/dL (31.0-37.0); MCV 93.7 fL (80.0-100.0); Mean Platelet Volume 8.9; Monocytes # (A) 0.4 k/uL (0-1.0); Monocytes % (A) 4 %; Neutrophils # (A) 7.1 k/uL (1.3-7.7); Neutrophils % (A) 74 %; Platelet Count 305 k/uL (150-450); RBC 5.37 m/uL (3.80-5.40); RDW 12.8 % (11.5-15.5); WBC 9.6 k/uL (3.8-10.6)
[2023-11-06 14:42] LABS: Prothrombin Time 10.9 sec (10.0-12.5)
[2023-11-06 14:49] LABS: ALT 30 U/L (4-34); AST 30 U/L (14-36); African American GFR (CKD) >90 (>60 ml/min/1.73 sqM); Albumin 4.5 g/dL (3.5-5.0); Alkaline Phosphatase 52 U/L (38-126); Anion Gap 10 mmol/L; Blood Urea Nitrogen 13 mg/dL (7-17); Calcium 9.2 mg/dL (8.4-10.2); Carbon Dioxide 17 mmol/L (22-30); Chloride 111 mmol/L (98-107); Creatine Kinase 145 U/L (30-135); Glucose 111 mg/dL (74-99); Non-African American GFR(CKD) >90 (>60 ml/min/1.73 sqM); Potassium 4.4 mmol/L (3.5-5.1); Sodium 138 mmol/L (137-145); Total Bilirubin 0.7 mg/dL (0.2-1.3); Total Protein 7.5 g/dL (6.3-8.2)
--- NOTE | 2023-11-06 15:00 | CT ---
EXAMINATION TYPE: CT brain wo con DATE OF EXAM: 11/06/2023 COMPARISON: 08/16/2023 HISTORY: Neuro deficit CT DLP: 1227.[address] of the brain was performed. The ventricles, basal cisterns and sulci overlying the cerebral convexities demonstrate mild enlargem ent. There is no evidence for intracranial hemorrhage or sulcal effacement. There is decreased attenuation about the periventricular white matter and deep white matter of both cerebral hemispheres, compatible with chronic small vessel ischemia. Differential diagnosis does incl ude demyelination. No mass effects are seen.No midline shift. Osseous calvarium is intact. If symptoms persist consider MRI. IMPRESSION: 1. Age related atrophic and chronic small vessel ischemic change without acute intracranial process s een at this time.
--- NOTE | 2023-11-06 15:04 | XR ---
EXAMINATION TYPE: XR chest 2V DATE OF EXAM: 11/06/2023 COMPARISON: 08/16/2023 HISTORY: Shortness of breath TECHNIQUE: Frontal and lateral views of the chest are obtained. FINDINGS: Scattered senescent parenchymal changes noted. Hyperinflation compatible with COPD. No evidence for infiltrate. No evidence for atelectasis. Heart size is stable. Mediastinal structures are stable and grossly unremarkable. No evidence for hilar prominence. Degenerative changes dorsal spine. IMPRESSION: 1. No evidence for acute pulmonary disease.
[2023-11-06 15:47] VITALS: BP 156/78
== END 2023-11-06 15:47 | disposition home or self-care (01) ==
LOC: EC 13:31
DX: G45.4 Transient global amnesia (principal); I45.10 Unspecified right bundle-branch block; F17.200 Nicotine dependence, unspecified, uncomplicated
CPT/HCPCS: 36415; 70450; 71046; 80053; 82550; 85025; 85610; 85730; 93005; 99285

== ENCOUNTER → 2024-09-20 | Outpatient (CLI) | payer MEDICARE, BC ==
--- NOTE | 2024-09-20 18:00 | CT ---
EXAMINATION TYPE: CT sinus wo con DATE OF EXAM: 09/20/2024 5:30 PM COMPARISON: None. 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 Reconstruct ed images in the coronal plane were obtained. Contrast used: mL of , (none if empty) Oral contrast used: (none if empty) CT DLP: 453 mGycm, Automated exposure control for dose reduction was used. FINDINGS: There is dental amalgam scatter artifact The maxillary sinuses are clear. The ethmoid air cells are clear. The sphenoid sinuses are clear. The frontal sinuses are clear. The septum is evaluated. There is septal deviation to the left. Tiny anterior inferior septal perfor ation may be present. The ostiomeatal units are patent. There is some mild left globe proptosis. Left extraocular muscles are slightly more prominent compare d to the right. Correlate for thyroid disease. Optic nerves as visualized appear unremarkable. The gl obes are symmetrical. Lungs appear normal. IMPRESSION: 1. Mild diffuse prominence of the left extraocular muscles compared to the right. Correlate for thyr oid disease. Mild left proptosis appears to be present. 2. No suspicious acute sinus changes. [facility], Workstation: [facility], 09/20/2024 5:58 PM
== END | disposition home or self-care (01) ==
LOC: RADCTMAIN 16:55
PROVIDERS: ATTEND Ophthalmology
DX: H52.02 Hypermetropia, left eye (principal); G52.9 Cranial nerve disorder, unspecified; H53.10 Unspecified subjective visual disturbances; J01.90 Acute sinusitis, unspecified; H53.2 Diplopia; H05.20 Unspecified exophthalmos
CPT/HCPCS: 70486

== ENCOUNTER → 2024-09-24 | Outpatient (CLI) | payer MEDICARE, BC ==
[2024-09-24 15:32] LABS: ALT 28 U/L (8-44); AST 18 U/L (13-35); Albumin 3.9 g/dL (3.8-4.9); Albumin/Globulin Ratio 1.62 Ratio (1.60-3.17); Alkaline Phosphatase 56 U/L (41-126); BUN/Creat Ratio 23.12 Ratio (12.00-20.00); Blood Urea Nitrogen 18.5 mg/dL (9.0-27.0); Calcium 9.4 mg/dL (8.7-10.3); Carbon Dioxide 24.2 mmol/L (21.6-31.8); Chloride 105 mmol/L (96-109); Globulin 2.4 g/dL (1.6-3.3); Glucose 101 mg/dL (70-110); Sodium 140 mmol/L (135-145); T4, Free (Free Thyroxine) 1.27 ng/dL (0.80-1.80); Total Bilirubin 0.3 mg/dL (0.3-1.2); Total Protein 6.3 g/dL (6.2-8.2)
== END | disposition home or self-care (01) ==
LOC: LABWHC1 10:28
PROVIDERS: ATTEND Ophthalmology
DX: E05.00 Thyrotoxicosis with diffuse goiter without thyrotoxic crisis or storm (principal); H53.2 Diplopia; H53.10 Unspecified subjective visual disturbances; H52.02 Hypermetropia, left eye; R22.0 Localized swelling, mass and lump, head
CPT/HCPCS: 36415; 80053; 84439; 84443